=== PATIENT | male | born 1990 | race Caucasian/White ===

== ENCOUNTER 2017-04-03 20:16 | Emergency (ER) | payer OTHER ==
[~2017-04-03] VITALS: Ht 165.1 cm; Wt 69.0 kg
[~2017-04-03 20:16] MED LIST: ACET500C5 PO; ALLO100T64; BENZ100C70 PO; BUPR-166; CYCL-319 PO; LORA1TAB PO; NAPR-260 PO; TRAM50TA2 PO; VENL25TA; [UNRECOGNIZED DRUG - CODE] PO
[2017-04-03 20:21] VITALS: Ht 165.1 cm; Wt 69.0 kg
[2017-04-03] MEDS ORDERED: IBUP-1542 PO (22:16)
[2017-04-03] MEDS ORDERED: CETI10CA PO (22:16)
[2017-04-03] MEDS ORDERED: BENZ100C70 PO (22:16)
[2017-04-03] MEDS ORDERED: ALBU8.5H3 INH (22:16)
--- NOTE | 2017-04-03 22:20 | ERD ---
ER Documentation Chief Complaint Date/Time DATE: 04/03/17 TIME: 22:18 Chief Complaint cough + st x2 days HPI 27-year-old male presents here in emergency department for complaints of cough sore throat runny nose nasal congestion on and off wheezing for 2 days. Patient has been having dry cough, does not cough up any phlegm or blood. Patient does not have any shortness of breath. Patient is complaining of sore throat, burning pain, 4/10 scale, is worse upon swallowing. Patient did not take any medication surface symptoms. Patient denies any sick contacts. ROS All systems reviewed and are negative except as per history of present illness. Medications Home Meds Active Scripts Cetirizine Hcl* (Zyrtec*) 10 Mg Capsule, 10 MG PO DAILY, #30 TAB.CHEW Prov:STEPHEN DING NP 04/03/17 Ibuprofen* (Motrin*) 600 Mg Tab, 600 MG PO Q6H Y for PAIN AND OR ELEVATED TEMP, #30 TAB Prov:STEPHEN DING NP 04/03/17 Benzonatate* (Tessalon Perle*) 100 Mg Capsule, 100 MG PO Q8H Y for COUGH, #30 CAP Prov:STEPHEN DING NP 04/03/17 Albuterol Sulfate* (Proair HFA*) 8.5 Gm Hfa.aer.ad, 2 PUFF INH Q4H Y for WHEEZING AND SOB, #1 INHALER Prov:STEPHEN DING NP 04/03/17 Tramadol HCl (Tramadol HCl) 50 Mg Tablet, 50 MG PO Q6 Y for PAIN, #10 TAB Prov:MARISOL BALDERRAMA PA-C 09/17/16 Cyclobenzaprine Hcl* (Cyclobenzaprine Hcl*) 10 Mg Tablet, 10 MG PO TID for MUSCLE SPASMS, #15 TAB Prov:MARISOL BALDERRAMA PA-C 09/17/16 Naproxen* (Naprosyn*) 500 Mg Tablet, 500 MG PO BID Y for PAIN AND/OR INFLAMMATION, #20 TAB Prov:MARISOL BALDERRAMA PA-C 09/17/16 Acetaminophen* (Tylophen*) 500 Mg Capsule, 1 CAP PO Q6H Y for PAIN AND OR ELEVATED TEMP, #20 CAP Prov:KARI DC PA-C 09/22/15 Benzonatate* (Tessalon Perle*) 100 Mg Capsule, 100 MG PO TID for 7 Days, CAP Prov:KARI DC PA-C 09/22/15 Lorazepam* (Lorazepam*) 1 Mg Tablet, 1 MG PO HS Y for ANXIETY, #10 TAB Prov:TIABHAVYA PA-C 07/12/15 Reported Medications Allopurinol* (Zyloprim*) 100 Mg Tablet 06/09/13 Bupropion Hcl* (Wellbutrin*) 75 Mg Tab 06/09/13 Venlafaxine Hcl* (Effexor*) 25 Mg Tablet 10/11/11 Iloperidone (Fanapt) 1 Mg Tablet, 8 MG PO BID 07/04/11 Allergies Allergies: Coded Allergies: Penicillins (Verified Allergy, Severe, 04/03/17) Sulfa (Sulfonamide Antibiotics) (Verified Allergy, Unknown, 04/03/17) milk (Verified Allergy, Unknown, 04/03/17) Uncoded Allergies: [id number] (SULFA (SULFONAMIDE ANTIBIOTICS)) (Allergy, Severe, 04/04/11) PMhx/Soc Medical and Surgical Hx: pt denies Medical Hx History of Surgery: No Anesthesia Reaction: No Hx Neurological Disorder: No Hx Respiratory Disorders: No Hx Cardiac Disorders: No Hx Psychiatric Problems: Yes (SCHIZOPHRENIA, DEPRESSION, ANXIETY) Hx Miscellaneous Medical Probl: Yes (GOUT) Hx Alcohol Use: Yes (OOC) Hx Substance Use: Yes (MJ) Hx Tobacco Use: No Smoking Status: Never smoker FmHx Family History: No coronary disease, No diabetes, No other Physical Exam Vitals Vital Signs Date Time Temp Pulse Resp B/P Pulse Ox O2 Delivery O2 Flow Rate FiO2 04/03/17 20:21 99.4 94 18 122/83 98 Physical Exam GENERAL: The patient is well developed and appropriate for usual state of health, in no apparent distress. CHEST: Clear to auscultation bilaterally. There are no rales, wheezes or rhonchi. HEART: Regular rate and rhythm. No murmurs, clicks, rubs or gallops. No S3 or S4. ABDOMEN: Soft, nontender and nondistended. Good bowel sounds. No rebound or guarding. No gross peritonitis. No gross organomegaly or masses. No Person sign or McBurney point tenderness. BACK: No midline or flank tenderness. EXTREMITIES: Equal pulses bilaterally. There is no peripheral clubbing, cyanosis or edema. No focal swelling or erythema. Full range of motion. Grossly neurovascularly intact. NEURO: Alert and oriented. Cranial nerves 2-12 intact. Motor strength in all 4 extremities with 5/5 strength. Sensation grossly intact. Normal speech and gait. SKIN: There is no apparent rash or petechia. The skin is warm and dry. HEMATOLOGIC AND LYMPHATIC: There is no evidence of excessive bruising or lymphedema. No gross cervical, axillary, or inguinal lymphadenopathy. Procedures/MDM Medical Decision Making: Patient symptoms are most likely consistent with acute bronchitis, which viral in origin. There is low suspicion for Pneumonia at this time since patients lungs sounds are clear, patient O2 saturation is normal and patient doesnt show any respiratory distress. Radiology exam is not indicated at this time. There is low suspicion for other cardiopulmonary emergencies at this time such as CHF, Pulmonary Embolism, Pneumothorax, Aortic Aneurysm or any other cardiopulmonary emergencies at this time. There is low suspicion for sepsis. Patient appears well and is hemodynamically stable. Fever is controlled with medicines. Disposition: Home. Condition: Stable Prescriptions: Albuterol, Tessalon Perle, Zyrtec, ibuprofen Instructions: Patient is advised to take medications as prescribed. Patient is advised to rest. Patient advised to increase fluid intake, do humidifier at home and if possible, do salt water gargles. Patient is advised that if symptoms are worse, shortness of breath, uncontrolled fever, stridor, vomiting, worst signs and symptoms to return to emergency department immediately. Otherwise, patient is advised to follow up with primary doctor in 5-7 days. Departure Diagnosis: Primary Impression: Acute bronchitis Bronchitis organism: unspecified organism Qualified Code: J20.9 - Acute bronchitis, unspecified organism Condition: Stable Patient Instructions: Bronchitis With Wheezing (Adult) Referrals: STEVIE BROWN (PCP) STEPHEN DING NP April 03, 2017 22:20
== END 2017-04-03 22:37 | disposition home or self-care (01) ==
LOC: FTE 20:16
DX: J20.9 Acute bronchitis, unspecified (principal)
CPT/HCPCS: 99284

== ENCOUNTER 2017-10-23 12:02 | Emergency (ER) | payer OTHER ==
[~2017-10-23] VITALS: Ht 165.1 cm; Wt 68.4 kg
[~2017-10-23 12:02] MED LIST changes: +ALBU8.5H3 INH; +CETI10CA PO; +IBUP-1542 PO
[2017-10-23 12:14] VITALS: Ht 165.1 cm; Wt 68.4 kg
--- NOTE | 2017-10-23 14:44 | RADRPT ---
PROCEDURE: XR Chest. CLINICAL INDICATION: Cough with bloody sputum. Hemoptysis. TECHNIQUE: PA and lateral chest x-ray. COMPARISON: None. FINDINGS: The lungs are clear. No focal opacification is seen. There is no pleural effusion or pneumothorax. The cardiomediastinal silhouette is unremarkable. The osseous structures are unremarkable. IMPRESSION: 1. Unremarkable chest x-ray. RPTAT: HMJB .Davis Meneses MD, MD Date Time Electronically viewed and signed by .Davis Meneses MD, on 10/23/2017 14:44 .B/
[2017-10-23] MEDS ORDERED: CETI10CA PO (14:56)
[2017-10-23] MEDS ORDERED: NASO17 NASAL (14:56)
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
== END 2017-10-23 15:07 | disposition home or self-care (01) ==
LOC: FTE 12:02
DX: R05 Cough (principal)
CPT/HCPCS: 71020; Z7502